=== PATIENT | female | born 2000 | race Caucasian/White ===

== ENCOUNTER 2023-12-26 09:53 | Emergency (ER) | payer MEDICAID ==
[~2023-12-26] VITALS: Ht 172.7 cm; Wt 68.2 kg
[~2023-12-26 09:53] MED LIST: NO HOME MEDS
[2023-12-26 10:06] VITALS: BP 139/76; PULSE 87
[2023-12-26] MEDS: metoclopramide 5 mg/ml inj IV ONE (10:30)
[2023-12-26] MEDS: morphine 4 MG/ML inj SYRINge IV ONE (10:31)
[2023-12-26] MEDS ORDERED: HYDR-3973 PO ×2 (11:32→18:34)
[2023-12-26] MEDS ORDERED: METO10TA3 PO ×2 (11:55→18:34)
[2023-12-26 12:00] VITALS: RESP 16; TEMP 98.4; O2SAT 100
== END 2023-12-26 12:02 | disposition home or self-care (01) ==
LOC: ER 09:53
DX: Z79.899 Other long term (current) drug therapy (principal); G43.909 Migraine, unspecified, not intractable, without status migrainosus
CPT/HCPCS: 70450; 96374; 96375; 99285; J2270; J2765

== ENCOUNTER 2024-10-25 09:18 | Inpatient (IN) | payer MEDICAID ==
[~2024-10-25] VITALS: Ht 167.6 cm; Wt 49.6 kg
[~2024-10-25 09:18] MED LIST changes: +HYDR-3973 PO; +METO10TA3 PO
--- NOTE | 2024-10-25 09:37 | Physician Documentation ---
History of Present Illness ~ Chief Complaint: Cold, cough & congestion Stated Complaint: COLD SYMPTOMS Time Seen by MD: 10:44 Primary Medical Doctor: Anshu Miles in [facility] 37 old female who is a stage IV cancer patient presents after having cold cough and congestion for over a week now. She says four weeks she has had a cough and along with normal URI symptoms however the last two days she has developed increased chest tightness denies any fevers. She is in her immunotherapy now for leptomeningeal cancer Day of Onset: Oct 25, 2024 Medication Reconciliation Allergies: Coded Allergies: No Known Allergies (Unverified , 12/26/23) Scheduled Metoclopramide Hcl* (Metoclopramide Hcl*), 1 TAB PO Q6H Scheduled PRN Hydrocodone Bit/Acetaminophen (Hydrocodone-Apap 10-325 Tablet), 1 TAB PO QID PRN PRN for pain Miscellaneous Medications Home Med List (No Home Medications), (Reported) Past Medical History Past Medical History: No Pertinent History Past Surgical History: no surgical history Alcohol Use: None Drug Use: none Lives In: Home Occupation: student Review of Systems All Other Systems at this time: Reviewed and Negative ROS As stated above in the HPI, otherwise all systems are reviewed and negative. Physical Exam Physical Exam General: Alert, no apparent distress. Respiratory: , no respiratory distress., mild crackles right side Chest: No accessory muscle use. Cardiovascular: Regular rate and rhythm, no murmurs. Gastrointestinal: Soft, nontender, nondistended. Bowels sounds present. Neurologic: Oriented x4. PsychPale, warm and dry. No edema, no ecchymosis. Progress Results/Orders Results/Orders Orders - LUCIANO WHYTE TIP FINISHER Chest,Single View (10/25/24 09:37) Electrocardiogram (10/25/24 ) Culture Blood (10/25/24 11:30) Saline Lock (10/25/24 11:30) Oxygen (10/25/24 11:30) Page Hospitalist (10/25/24 ) Completed Orders - LUCIANO WHYTE TIP FINISHER Chest,Single View (10/25/24 09:37) Cbc/Diff (10/25/24 09:37) BMP (10/25/24 09:37) LA (10/25/24 09:37) Ceftriaxone 2gm/D5w 50ml Bag (Rocephin 2 (10/25/24 11:28) Electrocardiogram (10/25/24 ) Lacticsepsis (10/25/24 11:30) Normal Saline 1000ml (0.9% Sodium Chlori (10/25/24 11:30) PBNP (10/25/24 09:59) Osmolality (10/25/24 09:59) MG (10/25/24 09:59) Medications Received in ER Medications (Trade) Dose Ordered Sig/Gurpreet Route PRN Reason Start Time Stop Time Status Last Admin Dose Admin Ceftriaxone Sodium/Dextrose 50 ml @ 100 mls/hr NOW STAT IV 10/25/24 11:28 10/25/24 11:57 DC 10/25/24 12:49 100 MLS/HR (0.9% sodium chloride (NS) 1000ml IV soln) 2,000 ml ONCE ONCE IVB 10/25/24 11:30 10/25/24 11:31 DC 10/25/24 12:50 2,000 ML ([place] 10/325mg tab) 1 tab Q4H PRN PO SEVERE PAIN 7-10 10/25/24 11:45 10/25/24 13:41 1 TAB Azithromycin 250 ml @ 250 mls/hr ONCE ONCE IV 10/25/24 11:45 10/25/24 12:44 DC 10/25/24 13:25 250 MLS/HR Vital Signs 10/25/24 09:31 Temp 97.5 Pulse 161 Resp 20 B/P (MAP) 101/69 Pulse Ox 97 O2 Flow Rate 0 Laboratory Tests Test 10/25/24 09:59 10/25/24 11:48 White Blood Count 24.4 H Red Blood Count 4.28 Hemoglobin 12.8 Hematocrit 38.1 Mean Corpuscular Volume 89.1 Mean Corpuscular Hemoglobin 30.0 Mean Corpuscular Hemoglobin Concent 33.6 Red Cell Distribution Width 15.3 H Platelet Count 587 H Mean Platelet Volume 7.3 L Neutrophils (%) (Auto) 93.1 H Lymphocytes (%) (Auto) 3.2 L Monocytes (%) (Auto) 3.0 Eosinophils (%) (Auto) 0.1 Basophils (%) (Auto) 0.6 Neutrophils # (Auto) 22.7 H Lymphocytes # (Auto) 0.8 L Monocytes # (Auto) 0.7 Eosinophils # (Auto) 0.0 Basophils # (Auto) 0.1 CBC Comment Sodium Level 129 L Potassium Level 3.5 Chloride Level 91 L Carbon Dioxide Level 29.2 Anion Gap 9 Blood Urea Nitrogen 4 L Creatinine 0.72 Estimated GFR/1.73 m2 > 90 BUN/Creatinine Ratio 5.6 L Glucose Level 190 H Osmolality 276 L Lactic Acid Level 2.6 H 2.4 H Calcium Level 9.6 Magnesium Level 1.8 Pro-B-Type Natriuretic Peptide 297 H Albumin 3.0 L Chemistry Comments Medical Decision Making Findings This immune compromised patient presented initially with URI symptoms which had persisted. However her x-ray made note of mid right lobe pneumonia. She also has not elevated white count over 20 and a lactic of 1.6. Going to start her on Rocephin along with fluid bolus and admitted to the hospital for further evaluate Differential Dx:Considerations: Include: Allergic rhinitis, Influenza, Otitis media, Peritonsillar abscess, Pharyngitis-Diphtheria, Pharyngitis-Streptoccal, Pharyngitis-Viral, Pneumonia, Pnuemonitis, Sinusitis, URI, Other Departure Disposition: ADMITTED INPATIENT Impression: Primary Impression: Acute pneumonia Condition: Fair Referrals: NO PRIMARY CARE PROVIDER (PCP) Critical Care Note Total Time (mins): 30 Critical Care Note The very real possibility of a deterioration of this patient's condition required the highest level of my preparedness for sudden, emergent intervention. I provided critical care services, which included medication orders, frequent reevaluations of the patient's condition and response to treatment, ordering and reviewing test results, and discussing the case with various consultants. Excludes time spent performing separately billable procedures. The critical care time associated with the care of the patient was. Signature Scribe Signature: Attestation: Scribed for Luciano Whyte Global Risk Management Director by Luciano Cisneros NP . 10/25/24 11:39 LUCIANO WHYTE TIP FINISHER Oct 25, 2024 09:37
[2024-10-25 10:31] LABS: MEAN PLATELET VOLUME 7.3 FL (7.4-10.4); RED CELL DISTRIBUTION WIDTH 15.3 % (11.5-14.5)
[2024-10-25 10:40] LABS: CREATININE 0.72 MG/DL (0.40-0.90); TOTAL CARBON DIOXIDE 29.2 MMOL/L (24-32); eCRCL 94 ML/MIN; eGFR > 90 ML/MIN
--- NOTE | 2024-10-25 11:10 | RADIOLOGY REPORT ---
CHEST RADIOGRAPH Indication: CP Technique: Single frontal view of the chest was obtained Comparison: None FINDINGS: Lines and Tubes: None Lungs: right middle lobe pneumonia. Pleura: No effusion. No pneumothorax. Cardiomediastinal contours: Unremarkable Bones: No acute osseous abnormality. IMPRESSION: 1. Right middle lobe pneumonia.
--- NOTE | 2024-10-25 11:31 | ELECTROCARDIOGRAPH REPORT ---
[facility] Test Date: 2024-10-25 Test Time: 11:28:30 Pat Name: LARISSA POSADA Department: EMERGENCY ROOM Room: Gender: F Senior Quality Manager: CARLO : 2000 Requested By: FRANCESCA WHYTE Order Number: [id number] Reading MD: Dr. Manuel Nye Measurements Intervals [place] Rate: 123 P: 82 [place]: 140 QRS: 229 QRSD: 91 T: 67 QT: 309 QTc: 442 Interpretive Statements Sinus tachycardia Multiple ventricular premature complexes Prominent P waves, nondiagnostic Right ventricular hypertrophy Electronically Signed On 10-25-2024 11:53:[address] Manuel Nye Please click the below link to view image of tracing.
[2024-10-25] MEDS ORDERED: magnesium sulf-water 2g/50mL 50 ML IV PRN (11:45)
[2024-10-25] MEDS ORDERED: magnesium hydroxide 30ml (MOM) UD suspension PO PRN (11:45)
[2024-10-25] MEDS ORDERED: HYDROcodone/acetaminophen 5mg/325mg tablet PO PRN (11:45)
[2024-10-25] MEDS ORDERED: mag hydrox/Alum hydrox/simeth 30ml oral suspension PO PRN (11:45)
[2024-10-25] MEDS ORDERED: ondansetron/PF 4mg/2ml inj IV PRN (11:45)
[2024-10-25] MEDS ORDERED: magnesium sulf-water 4G/100mL 100 ML IV PRN (11:45)
[2024-10-25] MEDS ORDERED: potassium Cl 20 mEq SR tablet PO PRN (11:45)
[2024-10-25] MEDS ORDERED: potassium Cl 40MEQ/1/2NS 520ml 520 ML IV PRN (11:45)
[2024-10-25 12:05] LABS: PRO BRAIN NATRIURETIC PEPTIDE 297 PG/ML (0-125)
--- NOTE | 2024-10-25 12:19 | HISTORY AND PHYSICAL ---
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 Patient states she has been following oncologist Nimo Schuster at [facility] and been receiving immunotherapy every two weeks. Patient denies prior UT/CAD, CVA, cardiac arrhythmia, DVT/PE, or GIB. Patient denies palpitations, shortness of breath, abdominal pain, n/v/d, fever, chills, headache. Initial diagnostic findings are notable for findings of sepsis including elevated lactic acid, leukocytosis, tachycardia, and chest x-ray revealing right middle lobe pneumonia. Patient is to be admitted for further workups and treatment. Allergies: Coded Allergies: No Known Allergies (Unverified , 12/26/23) Home Medications Home Medications Active Metoclopramide Hcl* (Metoclopramide HCl) 10 Mg Tablet 1 Tab PO Q6H 30 Days Hydrocodone-Apap 10-325 Tablet (Acetaminophen/Hydrocodone Bitart) 10mg/325mg Tablet 1 Tab PO QID PRN PRN 5 Days Reported No Home Medications (Home Med List) Each Past Medical History Past Medical History Melanoma diagnosed 2 years ago Lung metastasis Leptomeningeal carcinomatosis Past Surgical History Surgical History Comment Melanoma of 3rd and 4th phalanx of left foot resection Presence of [place] Past Social History Social History Comment Alcohol: Denies Tobacco: Denies Illicit drug use: Denies Living situation: Lives at home alone ROS ROS Other than positives in HPI, all 14 review of systems are negative Exam Vitals: Vital Signs Date Time Temp Pulse Resp B/P (MAP) Pulse Ox O2 Delivery O2 Flow Rate FiO2 10/25/24 09:31 97.5 161 20 101/69 97 0 General: Generalized weakness, A&Ox 3, NAD HEENT: Normocephalic, PERRLA Neck: Supple, trachea midline, no JVD Chest: Clear to auscultation bilaterally Cardiovascular: RRR, S1&S2 Abdomen: Soft and nontender Extremities: No cyanosis/clubbing/or edema Central Nervous System: CN II-XII intact, no focal deficits Musculoskeletal: No paraspinal muscle tenderness, no muscle spasm Skin: Warm and intact Diagnostic Data Last Recorded Lab Results: 10/25/24 0959 10/25/24 0959 Additional Plan Assessment & Plan Sepsis 2/2 CAP Community-acquired pneumonia, covering for Gram-positive and Gram-negative Melanoma (diagnosed 2 years ago) Lung metastasis, known Leptomeningeal carcinomatosis, on immunotherapy (oncologist Dr. Garduno [place]) Hyponatremia, hypovolemic Malnutrition, mild -elevated lactic acid, leukocytosis, EKG sinus at 123bpm, multiple PVC, no ST depression/elevation, CXR right middle lobe PNA, UA negative, TTE EF 55-60%. no significant VHD, no pericardial effusion. -fluid resuscitation, NS, abx -follow CTA, blood cx, repeat lactic acid DVT/VTE prophylaxis: Heparin Code status: Full code I spent a total of 35 minutes discussing Advanced Care Planning measures with the patient. Advance care planning: Discussed with patient the importance of advance care planning in case of emergent situation. We discussed various resuscitative measures/ ACP with the patient at the time of admission. Patient voiced understanding and patient has decided on a full code status. Date of Service: Oct 25, 2024 Billing Provider: JOSIE PAZ Common Visit Codes: [id number] INP/OBS CARE (HIGH) Secondary Visit Codes: 37574-[id number] CARE PLAN 30 MINUTES JOSIE PAZ Oct 25, 2024 12:19
[2024-10-25] MEDS: PERFLUTREN PROTEIN-A MICROSPHR (Optison) 0.22 MG/ML 3ML VIAL IV ONE (12:20)
[2024-10-25 12:23] LABS: OSMOLALITY 276 MOSM/K (280-300)
[2024-10-25] MEDS: CefTRIAXone 2gm/D5W 50ml BAG 50 ML IV STA (12:49)
[2024-10-25] MEDS: normal saline 1000ML IV soln IVB ONE (12:50)
[2024-10-25] MEDS: azithromycin/NS 500mg/250ml 250 ML IV ONE (13:25)
[2024-10-25] MEDS: normal saline 1000ml 1,000 ML IV ONE (13:39)
[2024-10-25] MEDS: HYDROcodone/acetaminophen 10/325mg tab PO PRN (13:41)
[2024-10-25 13:46] LABS: LEUKOCYTE ESTERASE ,URINE NEGATIVE (Neg); NITRITES, URINE NEGATIVE (Neg); OCCULT BLOOD,URINE NEGATIVE (Neg)
--- NOTE | 2024-10-25 13:48 | RADIOLOGY REPORT ---
Procedure: CT CTA CHEST PE W/ IV [facility] Study Date and Requested Time: 10/25/2024 12:18 PM History: Known malignancy, tachycardia, r/o PE Comparison: None Dose: CTDI: 5.67 mGy DLP: 201.11 mGycm Technique: Multiplanar images of the chest are obtained with contrast. 3-D image postprocessing was p erformed and images were used for interpretation and reporting. Findings: The thyroid gland is unremarkable. Streak artifact from contrast within adjacent venous structure limits evaluation of of the proximal r ight upper lobe lobar pulmonary artery. Otherwise, No evidence of filling defect within the pulmonary arteries to suggest pulmonary embolism. No evidence of aortic aneurysm or dissection. Left basilar linear atelectasis. Right middle lobe collapse. Patchy tree-in-bud opacities of the righ t upper and lower lobes with 1 cm right lower lobe solid nodule Heart within normal limits. There is soft tissue density extending along the anterior mediastinum wit h 2.8 x 2 cm soft tissue density of the right costophrenic angle. No significant mediastinal or hilar adenopathy. Soft tissues are unremarkable. Sclerosis of the sternum and manubrium sclerosis of T1, T2, T5 and T7 vertebral bodies concerning for metastasis. Superior endplate Schmorl node of T11. Sclerosis of the right medial clavicle with erosive changes of the left manubrium. 5.7 x 10 cm ill-defined heterogeneous hepatic lesion is noted with additional Partially imaged 2.8 cm ill-defined hepatic lesion and 4.1 cm hepatic lesion. There is also a 4.7 cm hepatic lesion. Additi onal small hypodense hepatic lesions are noted. Impression: Artifact from contrast within adjacent venous structure limits evaluation of the right proximal upper lobar pulmonary artery. Otherwise, no pulmonary embolism. No aortic aneurysm or dissection. Patchy tree-in-bud opacities of the right upper and lower lobe with 1 cm right lower lobe solid nodul e present infectious process with metastasis not excluded. There is soft tissue density filling of the anterior mediastinum with right cardiophrenic angle by 2 cm soft tissue density lesion. Multiple hepatic lesions which most likely represents metastasis. Osseous blastic lesions as detailed above with erosive changes of the left side of the manubrium.
[2024-10-25 13:50] LABS: UA COLLECTION TYPE CLN CATCH MIDSTREAM
[2024-10-25 14:39] LABS: OSMOLALITY UA 319 MOSM/K (50-1400)
[2024-10-25] MEDS: normal saline 1000ml 1,000 ML IV SCH (14:58)
[2024-10-25] MEDS: docusate sod 100mg capsule PO SCH (20:58)
[2024-10-25] MEDS: heparin, porcine 5000 units/ml vial SQ SCH (20:58)
[2024-10-25] MEDS: K and/or MAG REPLACEMENT MC SCH (20:59)
[2024-10-25] MEDS ORDERED: HYDR-3686 PO (21:30)
[2024-10-25] MEDS ORDERED: OXYC20TA55 PO (21:30)
[2024-10-25] MEDS ORDERED: METH-350 (21:30)
[2024-10-25] MEDS ORDERED: PRED10TA PO (21:30)
[2024-10-25 22:52] VITALS: BP 104/69; PULSE 113; RESP 20; TEMP 98.4; O2SAT 99
[2024-10-26] VITALS: RESP 14; O2SAT 97
[2024-10-26] MEDS: oxyCODONE SR 10mg (sust. release) tab PO ONE (01:01)
[2024-10-26 02:00] VITALS: BP 98/54; PULSE 110; RESP 14; TEMP 97.6; O2SAT 97
[2024-10-26 06:51] LABS: MEAN PLATELET VOLUME 7.1 FL (7.4-10.4); RED CELL DISTRIBUTION WIDTH 15.5 % (11.5-14.5)
[2024-10-26 07:15] LABS: CREATININE 0.76 MG/DL (0.40-0.90); TOTAL CARBON DIOXIDE 26.6 MMOL/L (24-32); eCRCL 89 ML/MIN; eGFR > 90 ML/MIN
[2024-10-26 07:16] VITALS: BP 97/60; PULSE 106; RESP 20; TEMP 97.3; O2SAT 98
[2024-10-26] MEDS: potassium Cl 20 mEq SR tablet PO PRN (08:13)
[2024-10-26] MEDS: oxyCODONE SR 10mg (sust. release) tab PO SCH (08:14)
[2024-10-26] MEDS: CefTRIAXone 2gm/D5W 50ml BAG 50 ML IV SCH (09:00)
[2024-10-26] MEDS: azithromycin/NS 500mg/250ml 250 ML IV SCH (09:00)
--- NOTE | 2024-10-26 12:35 | PROGRESS NOTE ---
Daily Progress Note Providers to CC ~ Antibiotic Timeout Antibiotic Ordered?: Yes Subjective No acute events overnight. Patient examined at bedside. No new complaints. Patient denies chest pain, sob, palpitations, abdominal pain, n/v/d. Vss, labs notable for downtrending white count and normalized lactic acid. CTA PE neg, PNA, metastasis consistent with hx, hepatic lesions likely metastasis, osseous blastic lesions. Objective Vital Signs Date Time Temp Pulse Resp B/P (MAP) Pulse Ox O2 Delivery O2 Flow Rate FiO2 10/26/24 07:16 97.3 106 20 97/60 (72) 98 Room Air 10/26/24 00:00 0.0 Result Diagram: 10/26/2462110/26/24621 Physical Exam General: Generalized weakness, A&Ox 3, NAD HEENT: Normocephalic, PERRLA Neck: Supple, trachea midline, no JVD Chest: Clear to auscultation bilaterally Cardiovascular: RRR, S1&S2 Abdomen: Soft and nontender Extremities: No cyanosis/clubbing/or edema Central Nervous System: CN II-XII intact, no focal deficits Musculoskeletal: No paraspinal muscle tenderness, no muscle spasm Skin: Warm and intact Problem\Assessment\Plan Assessment & Plan Sepsis 2/2 CAP Community-acquired pneumonia, covering for Gram-positive and Gram-negative Melanoma (diagnosed 2 years ago) Lung metastasis, known Leptomeningeal carcinomatosis, on immunotherapy (oncologist Dr. Garduno [place]) Hyponatremia, hypovolemic Malnutrition, mild -elevated lactic acid, leukocytosis, EKG sinus at 123bpm, multiple PVC, no ST depression/elevation, CXR right middle lobe PNA, UA negative, TTE EF 55-60%. no significant VHD, no pericardial effusion. -fluid resuscitation, NS, abx -follow CTA, blood cx, repeat lactic acid -10/26: Downtrending white count, normalized lactic acid, CTA PE neg, PNA, metastasis consistent with hx, hepatic lesions likely metastasis, osseous blastic lesions. DVT/VTE prophylaxis: Heparin Code status: Full code Date of Service: Oct 26, 2024 Billing Provider: JOSIE PAZ Common Visit Codes: [id number] INP/OBS CARE(HIGH) JOSIE PAZ Oct 26, 2024 12:35
[2024-10-26 15:00] VITALS: BP 101/62; PULSE 111; RESP 24; TEMP 98.4; O2SAT 97
[2024-10-26 18:00] VITALS: BP 125/68; PULSE 108; RESP 17; TEMP 97.5; O2SAT 100
[2024-10-26] MEDS: lactose-reduced food (Ensure Enlive) - 237ml bottle PO SCH (18:01)
[2024-10-26 18:02] VITALS: O2SAT 97
--- NOTE | 2024-10-26 18:50 | CARDIOLOGY REPORT ---
APPROVED REPORT EXAM: Comprehensive 2D, Doppler, and color-flow Echocardiogram. Patient Location: ER 10 Blood Pressure: 107/64 mmHg Heart Rate: 109 bpm Rhythm: SINUS TACHYCARDIA Indications PERICARDIAL EFFUSION/TAMPONADE IMMUNOTHERAPY Button Tacker: NONE Previous echo: NONE 2D Dimensions RVDd 2.8 cm IVSd 0.8 (0.7-1.1cm) LVDd 4.1 cm PWd 0.8 (0.7-1.1cm) IVSs 1.0 (0.8-1.2cm) LVDs 2.9 (2.5-4.0cm) PWs 1.5 (0.8-1.2cm) LVOT Diameter 2.09 (1.8-2.4cm) LVEF(%) 58.2 (>50%) FS (%) 30.3 % SV 43.2 ml CO 4.7 L/min M-Mode Dimensions Left Atrium(MM) 2.50 (2.5-4.0cm) Aortic Root 2.91 (2.2-3.7cm) Aortic Cusp Exc 2.00 (1.5-2.0cm) MV EPSS 0.3 (<0.5cm) Aortic Valve AoV Peak Lex. 93.7 cm/s AoV VTI 14.6 cm AO Peak GR. 3.5 mmHg AO Mean GR. 2 mmHg LVOT VTI 12.72 cm LVOT Peak Lex. 84.5 cm/s ALHAJI(VTI)/BSA 3.00 cm2/m2 ALHAJI (VTI) 3.00 cm2 Mitral Valve MV E Velocity 62.5 cm/s MV Peak Gr. 3 mmHg MV DECEL TIME 160 ms MV A Velocity 73.8 cm/s MV PHT 56 ms E/A Ratio 0.8 MVA (PHT) 3.93 cm2 MV VMax80.3 cm/s TDI Lateral E' P. V9.62 cm/s E/Lateral E' 6.5 Pulmonary Vein S1 Velocity 60.5 cm/s D2 Velocity 63.4 cm/s PVa Rvctjwdv27.1 cm/s PVa [id number] msec LEFT VENTRICLE Normal LV size and wall thickness. Overall systolic function is normal. Overall LVEF is 55-60%. RIGHT VENTRICLE RV is normal size and function. ATRIA The left atrium size is normal. AORTIC VALVE Trileaflet AV appears normal without stenosis. No insufficiency. MITRAL VALVE Mild MV annular calcification without stenosis. Trace regurgitation. TRICUSPID VALVE TV appears structurally normal with trace regurgitation. PULMONIC VALVE Normal PV without stenosis, physiologic insufficiency. GREAT VESSELS The aortic root is normal in size. PERICARDIUM Normal pericardium. No effusion. Other Information Study Quality: Adequate Conclusion Overall LVEF is 55-60%. RV is normal size and function. Trileaflet AV appears normal without stenosis. No insufficiency. Mild MV annular calcification without stenosis. Trace regurgitation. TV appears structurally normal with trace regurgitation. Normal PV without stenosis, physiologic insufficiency. Normal pericardium. No effusion.
== END 2024-10-26 19:31 | disposition left against medical advice (07) | DRG 720 ==
LOC: ER 09:18 → ED HOLD 11:50 → PCU 3S 22:44
PROVIDERS: ADMIT Nurse Practitioner Family; ATTEND Nurse Practitioner Family
PROC: B32T1ZZ Computerized Tomography (CT Scan) of Left Pulmonary Artery using Low Osmolar Contrast (ICD-10-PCS; principal; 2024-10-25)
PROC: B3201ZZ Computerized Tomography (CT Scan) of Thoracic Aorta using Low Osmolar Contrast (ICD-10-PCS; 2024-10-25)
PROC: B32S1ZZ Computerized Tomography (CT Scan) of Right Pulmonary Artery using Low Osmolar Contrast (ICD-10-PCS; 2024-10-25)
DX: A41.9 Sepsis, unspecified organism (principal); C78.00 Secondary malignant neoplasm of unspecified lung; C79.49 Secondary malignant neoplasm of other parts of nervous system; E44.1 Mild protein-calorie malnutrition; E87.1 Hypo-osmolality and hyponatremia; I49.3 Ventricular premature depolarization; J18.9 Pneumonia, unspecified organism; Z53.21 Procedure and treatment not carried out due to patient leaving prior to being seen by health care provider; Z85.820 Personal history of malignant melanoma of skin; Z68.1 Body mass index [BMI] 19.9 or less, adult
CPT/HCPCS: 36415; 71045; 71275; 80048; 80053; 81003; 83605; 83735; 83880; 83930; 83935; 84300; 85025; 87040; 87081; 93005; 93306; 99291; G0378; J0456; J0696; J1644; J7030; J7512; Q0177; Q9967